=== PATIENT | female | born 1960 | race Caucasian/White ===

== ENCOUNTER → 2023-12-23 10:01 | Outpatient (CLI) | payer OTHER, SELFPAY | LOC: WC 10:21 | PROVIDERS: Referring Provider Registered Nurse; Visit Provider Surgery | DX: K94.19 Other complications of enterostomy (principal) | CPT/HCPCS: 99203; 99213 ==

== ENCOUNTER → 2023-12-30 11:39 | Outpatient (CLI) | payer OTHER, SELFPAY | LOC: WC 11:39 | PROVIDERS: Referring Provider Registered Nurse; Visit Provider Surgery | DX: K94.03 Colostomy malfunction (principal) | CPT/HCPCS: 99213 ==

== ENCOUNTER → 2024-01-06 10:12 | Outpatient (CLI) | payer OTHER, SELFPAY | LOC: WC 10:13 | PROVIDERS: Referring Provider Registered Nurse; Visit Provider Surgery | DX: Z43.3 Encounter for attention to colostomy (principal) | CPT/HCPCS: 99212 ==

== ENCOUNTER → 2024-01-27 10:31 | Outpatient (CLI) | payer OTHER, SELFPAY | PROVIDERS: Referring Provider Registered Nurse; Visit Provider Surgery | DX: Z43.2 Encounter for attention to ileostomy (principal) | CPT/HCPCS: 99212 ==

== ENCOUNTER 2024-10-21 16:02 | Inpatient (IN) | payer BC, SELFPAY ==
[2024-10-21] VITALS (21 sets, daily range): BP systolic 142–188; BP diastolic 76–110; PULSE 53–120; RESP 9–36; TEMP 36.2–37.2; O2SAT 90–100; BMI 17.6
--- NOTE | 2024-10-21 16:13 | EKG_ITS ---
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
--- NOTE | 2024-10-21 16:13 | DI.RAD.S_ITS ---
PROCEDURE: XR CHEST 1V INDICATIONS: altered mental status TECHNIQUE: One view of the chest was acquired. COMPARISON: None. FINDINGS: Surgical changes and devices: Cervical fixation rods. Lungs and pleura: Mild appearance of increased vascularity. Mediastinum: Mediastinal contours appear normal. Heart size is enlarged. Bones and chest wall: No suspicious bony lesions. Overlying soft tissues appear unremarkable. IMPRESSION: Mild increased vascularity suggestive of edema. Dictated by: Suzette Jordan M.D. on 10/21/2024 at 16:56 Approved by: Suzette Jordan M.D. on 10/21/2024 at 16:57
[2024-10-21 17:38] LABS: Hematocrit 27.7 % (36-46); Hemoglobin 9.5 g/dL (12.0-16.0); Mean Corpuscular HGB Conc 34.2 % (30-36); Mean Corpuscular Hemoglobin 30.3 PG (26-34); Mean Corpuscular Volume 88.5 fL (80-100); Platelet Count 123 X10^3/uL (150-400); Red Blood Cell Count 3.13 X10^6/uL (4.0-5.2); Red Cell Distribution Width 16.3 % (11.6-14.8); White Blood Cell Count 2.3 X10^3/uL (4.5-11.0)
[2024-10-21 17:42] LABS: Alanine Aminotransferase 38 IU/L (<35); Albumin 4.2 g/dL (3.5-5.0); Albumin Globulin Ratio 1.2 (1.0-2.8); Alkaline Phosphatase 107 U/L (38-126); Ammonia (NH3) < 9 umol/L (9-30); Aspartate Aminotransferase 62 IU/L (14-36); Bilirubin Total 0.3 mg/dL (0.2-1.3); Blood Urea Nitrogen 19 mg/dL (7-17); Calcium 10.1 mg/dL (8.4-10.2); Carbon Dioxide 23 mmol/L (22-32); Chloride 97 mmol/L (98-107); Estimated Glomerular Filt Rate > 60 mL/min (>60); Globulin 3.4 g/dL (1.7-4.1); Glucose 81 mg/dL (80-110); HEMOLYSIS < 15 (0-50); Potassium 4.5 mmol/L (3.4-5.1); Sodium 129 mmol/L (137-145); Total Protein 7.6 g/dL (6.3-8.2)
[2024-10-21 17:43] LABS: Add Manual Diff / Slide Review YES
[2024-10-21 17:53] LABS: Anisocytosis 1+; Neutrophils Absolute Manual 1909 /uL (3000-5900); Total Cells Counted 100
[2024-10-21 17:54] LABS: Microcytosis 1+
--- NOTE | 2024-10-21 19:18 | ED_ITS ---
HPI - Altered Mental Status General Chief Complaint: Altered Mental Status Stated Complaint: confusion, not feeling well Time Seen by Provider: 10/21/24 17:59 History of Present Illness HPI narrative: 63-year-old female with history of alcohol abuse (sober for 2 years), depression, HTN presents by private vehicle from home for intermittent confusion. History is obtained from at bedside, who was also who poor historian and states that he has short term memory loss. Patient's has been states that the patient has been intermittently ?delusional, off and on for the last year. He states that he has brought the patient twice to [facility], where her confusion was attributed to hyponatremia. Patient was given fluids and sodium was corrected and she was discharged home. states that he has been trying to feed the patient salt at home, but today she was confused again and so he brought her back in for evaluation. Related Data Home Medications Medication Instructions Recorded Confirmed amlodipine 5 mg tablet 5 mg PO DAILY 10/22/24 10/22/24 citalopram 10 mg tablet 10 mg PO DAILY 10/22/24 10/22/24 citalopram 10 mg tablet 20 mg PO DAILY 10/22/24 10/22/24 naproxen sodium 220 mg tablet 220 mg PO PRN PRN Pain (Scale 10/22/24 10/22/24 (Flanax (naproxen)) Score 1-3) sodium chloride 1,000 mg soluble 2,000 mg PO BID 10/22/24 10/22/24 tablet sodium zirconium cyclosilicate 10 10 g PO DAILY 10/22/24 10/22/24 gram oral powder packet (Lokelma) tramadol 50 mg tablet 50 mg PO PRN PRN Pain, Moderate 10/22/24 10/22/24 Allergies Allergy/AdvReac Type Severity Reaction Status Date / Time Penicillins Allergy Severe Anaphylaxis Verified 10/22/24 01:06 vancomycin Allergy Rash Verified 10/22/24 01:06 methocarbamol AdvReac Verified 10/22/24 01:06 Patient History Social History household members: spouse Exam Initial Vital Signs Initial Vital Signs: Vital Signs Temperature 98.9 F 10/21/24 16:08 Pulse Rate 57 L 10/21/24 16:08 Respiratory Rate 16 10/21/24 16:08 Blood Pressure 188/110 H 10/21/24 16:08 Pulse Oximetry 99 10/21/24 16:08 Oxygen Delivery Method Room Air 10/21/24 16:08 Const: Awake, alert, debilitated, frail, appears chronically unwell Cardiac: regular rate, regular rhythm RESP: unlabored, clear bilaterally, no wheezing GI: Soft, nontender, nondistended, no rebound, no guarding MSK: Atraumatic, full range of motion, pulses equal Skin: Warm, excoriations over hands and fingers bilaterally Neuro: AO x2, CN II-XII grossly intact, moves all extremities Course Orders Ordered: ED Orders 10/21/24 20:24 CT head/brain wo con Stat 10/21/24 20:25 Sodium Urine Random Stat Urine Drug Screen, Rapid Stat 10/21/24 20:26 US abdomen limited Stat 10/21/24 23:28 Consult to Occupational Therapy Evaluate & Treat Consult to Physical Therapy Evaluate & Treat 10/21/24 23:30 Complete Blood Count AUTO DIFF DAILY Comprehensive Metabolic Panel DAILY Acetaminophen (Acetaminophen 325 Mg Tablet) 650 mg PO Q6H PRN PRN Reason: Fever/Mild Pain (1-3) Lactated Ringer's (Lactated Ringers) 1,000 mls @ 75 mls/hr IV CONT PADMINI Last Admin: 10/22/24 01:22 Dose: 75 mls/hr Documented By: WB Naloxone HCl (Naloxone 0.4 Mg/Ml Vial) 0.2 mg IV Q2MIN PRN PRN Reason: Opiate Reversal Vital Signs Vital signs: Vital Signs - 8 hr 10/21/24 18:30 10/21/24 18:32 10/21/24 18:42 Temperature Pulse Rate 59 L 61 Respiratory Rate 11 L 11 L Blood Pressure 179/81 H Pulse Oximetry 10/21/24 18:42 10/21/24 19:00 10/21/24 19:00 Temperature Pulse Rate 58 L 56 L Respiratory Rate 9 L 9 L Blood Pressure 167/76 H Pulse Oximetry 99 97 10/21/24 19:30 10/21/24 19:31 10/21/24 19:31 Temperature Pulse Rate 66 64 Respiratory Rate Blood Pressure 174/81 H Pulse Oximetry 90 L 92 10/21/24 20:00 10/21/24 20:00 01/31/25 20:30 Temperature Pulse Rate 64 63 Respiratory Rate 36 H 23 Blood Pressure 182/90 H Pulse Oximetry 100 98 10/21/24 21:00 10/21/24 21:30 10/21/24 22:00 Temperature Pulse Rate 62 56 L 64 Respiratory Rate 19 29 H 19 Blood Pressure 180/91 H Pulse Oximetry 99 99 98 10/21/24 22:09 10/21/24 22:09 10/21/24 22:30 Temperature Pulse Rate 60 Respiratory Rate 16 Blood Pressure 167/90 H 183/100 H Pulse Oximetry 99 10/21/24 22:30 10/21/24 23:00 10/21/24 23:24 Temperature 97.2 F L Pulse Rate 63 82 61 Respiratory Rate 16 19 16 Blood Pressure 172/105 H Pulse Oximetry 100 99 100 MDM - Altered Mental Status Differential Diagnosis Differential diagnosis: Likely altered mental status, delirium and hypoglycemia Lab Data 10/21/24 17:15 10/21/24 17:15 Labs: Lab Results 10/21/24 10/21/24 Range/Units 17:15 20:25 WBC 2.3 L (4.5-11.0) X10^3/uL RBC 3.13 L (4.0-5.2) X10^6/uL Hgb 9.5 L (12.0-16.0) g/dL Hct 27.7 L (36-46) % MCV 88.5 (80-100) fL MCH 30.3 (26-34) PG MCHC 34.2 (30-36) % RDW 16.3 H (11.6-14.8) % Plt Count 123 L (150-400) X10^3/uL Neut % (Auto) Not Reportable Lymph % (Auto) Not Reportable [place] % (Auto) Not Reportable Eos % (Auto) Not Reportable Baso % (Auto) Not Reportable Lymph # (Auto) Not Reportable [place] # (Auto) Not Reportable Baso # (Auto) Not Reportable Total Counted 100 Seg Neutrophils % 83.0 H (38-70) % Lymphocytes % (Manual) 10.0 L (25-45) % Monocytes % (Manual) 6.0 (2-11) % Basophils % (Manual) 1.0 (0-1) % Neutrophils # (Manual) 1909 L (7719-4505) /uL RBC Morphology See below Anisocytosis 1+ H Microcytosis 1+ H PT 10.6 (9.4-12.5) SECONDS INR 0.9 (0.9-1.3) Sodium 129 L (137-145) mmol/L Potassium 4.5 (3.4-5.1) mmol/L Chloride 97 L (98-107) mmol/L Carbon Dioxide 23 (22-32) mmol/L BUN 19 H (7-17) mg/dL Creatinine 0.50 L (0.52-1.04) mg/dL Estimated GFR > 60 (>60) mL/min BUN/Creatinine Ratio 38.0 H (6-22) Glucose 81 (80-110) mg/dL Calcium 10.1 (8.4-10.2) mg/dL Total Bilirubin 0.3 (0.2-1.3) mg/dL AST 62 H (14-36) IU/L ALT 38 H (<35) IU/L Alkaline Phosphatase 107 (38-126) U/L Ammonia < 9 L (9-30) umol/L Total Protein 7.6 (6.3-8.2) g/dL Albumin 4.2 (3.5-5.0) g/dL Globulin 3.4 (1.7-4.1) g/dL Albumin/Globulin Ratio 1.2 (1.0-2.8) TSH 7.50 H (0.47-4.68) uIU/mL Ur Random Sodium 106 H (30-90) mmol/L U Opiates 300ng/mL cut Negative (Negative) Ur Oxycodone Screen Negative (Negative) Urine Methadone Screen Negative (Negative) Ur Barbiturates Screen Negative (Negative) U Tricyclic Antidepress Negative (Negative) Ur Phencyclidine Scrn Negative (Negative) Ur Amphetamines Screen Negative (Negative) U Methamphetamines Scrn Negative (Negative) Ur MDMA Scrn (Ecstasy) Negative (Negative) U Benzodiazepines Scrn Negative (Negative) Urine Cocaine Screen Negative (Negative) U Marijuana (THC) Screen Negative (Negative) Urine pH Normal (Normal) Urine Specific [place] Normal (Normal) Ur Creatinine Normal (Normal) Urine Dip Bedside Urine Glucose Negative Bedside Urine Bilirubin - Negative Bedside Urine Ketone - Negative Urine Specific [place] 1.01 Bedside Urine Occult Blood - Negative Bedside Urine pH 7 Bedside Urine Protein - Negative Bedside Urine Urobilinogen - Negative Bedside Urine Nitrite - Negative Bedside Urine Leukocytes - Negative Esterase Imaging Data CT scan - head: Radiologist's Impression: PROCEDURE: CT HEAD/BRAIN WO CON INDICATIONS: AMS TECHNIQUE: Noncontrast 4.5 mm thick angled axial sections acquired from the foramen magnum to the vertex, with coronal and sagittal reformats. For radiation dose reduction, the following was used: automated exposure control, adjustment of mA and/or kV according to patient size. COMPARISON: None. FINDINGS: Image quality: Diagnostic. CSF spaces: Basal cisterns are patent. No extra-axial fluid collections. Ventricles are normal in size and shape. Brain: No midline shift. No intracranial masses or hemorrhage. Barnes-white matter interface is normal. Skull and face: Calvarium and visualized facial bones are intact, without suspicious lesions. Sinuses: Visualized sinuses and mastoids are clear. IMPRESSION: No acute intracranial pathology. Approved by: Ivone Hendricks M.D.,Ph.D. on 10/21/2024 at 22:48 Chest x-ray: Radiologist's Impression: PROCEDURE: XR CHEST 1V INDICATIONS: altered mental status TECHNIQUE: One view of the chest was acquired. COMPARISON: None. FINDINGS: Surgical changes and devices: Cervical fixation rods. Lungs and pleura: Mild appearance of increased vascularity. Mediastinum: Mediastinal contours appear normal. Heart size is enlarged. Bones and chest wall: No suspicious bony lesions. Overlying soft tissues appear unremarkable. IMPRESSION: Mild increased vascularity suggestive of edema. Dictated by: Suzette Jordan M.D. on 10/21/2024 at 16:56 Approved by: Suzette Jordan M.D. on 10/21/2024 at 16:57 US - abdomen: Radiologist's Impression: PROCEDURE: US ABDOMEN LIMITED INDICATIONS: HX ALCOHOL ABUSE, LIVER EVAL TECHNIQUE: Real-time scanning was performed of the abdominal and retroperitoneal organs, with image documentation. COMPARISON: None. FINDINGS: Liver: Limited views of the liver. Liver is normal in size. There is increased hepatic echogenicity. Main portal vein is patent with normal hepatopetal flow. Gallbladder: No gallstones. No wall thickening. No pericholecystic edema. Negative sonographic Baez's sign. Biliary ducts: Intrahepatic bile ducts are non-dilated. Extrahepatic bile duct caliber measures 3 mm. Normal is 6-7 mm or less in diameter, or 10 mm or less post-cholecystectomy. Pancreas: Visualized portions of the pancreas are sonographically normal. Miscellaneous: No free abdominal fluid. IMPRESSION: Limited views of the liver. Increased hepatic echogenicity, which can be seen in the setting of hepatic steatosis. No cholelithiasis or sonographic evidence of acute cholecystitis. Note: Concordant preliminary findings given to ordering ED provider by data integration developer at time of imaging completion. Approved by: Ivone Hendricks M.D.,Ph.D. on 10/21/2024 at 22:09 ECG Data Interpretation: Normal sinus rhythm at 62 beats per minute. Normal ME. No ST T wave changes MDM Narrative Medical decision making narrative: Patient with chronic intermittent altered mental status. Has been attributed to low sodium in the past. Sodium here today 129, patient has varied between 127 and 130 based on records from [facility]. Patient was awake, alert, able to follow commands, however does intermittently say nonsensical statements and does appear to be confused. Case discussed with Nephrology Dr. Randall. She states that there does not appear to be an emergent need for transfer and nephrology consult. It is unlikely that this level sodium is causing the patient's symptoms. She recommends looking for other etiology of patient's altered mental status. She states that she is happy to consult as needed. Laboratory work reviewed, WBC count 2.3, previously 7.6. Hemoglobin 9.5, platelet count 123, sodium 129, potassium 4.5, creatinine 0.5. Previous sodium 128 on 10/19 at [facility]. Random sodium in urine 106. POC urine without sign of infection. CT brain negative for acute findings. Ultrasound shows signs of hepatic steatosis without obvious ascites or other evidence of failure. Mental status unchanged plan to admit patient for further treatment. Discharge Plan Departure Patient Disposition: Admitted As Inpatient Clinical Impression: Altered mental status, Hyponatremia Admit Date/Time: 10/21/24 23:28 Admit Provider: Angel Alexander
--- NOTE | 2024-10-21 20:24 | DI.CT.S_ITS ---
PROCEDURE: CT HEAD/BRAIN WO CON INDICATIONS: AMS TECHNIQUE: Noncontrast 4.5 mm thick angled axial sections acquired from the foramen magnum to the vertex, with coronal and sagittal reformats. For radiation dose reduction, the following was used: automated exposure control, adjustment of mA and/or kV according to patient size. COMPARISON: None. FINDINGS: Image quality: Diagnostic. CSF spaces: Basal cisterns are patent. No extra-axial fluid collections. Ventricles are normal in size and shape. Brain: No midline shift. No intracranial masses or hemorrhage. Barnes-white matter interface is normal. Skull and face: Calvarium and visualized facial bones are intact, without suspicious lesions. Sinuses: Visualized sinuses and mastoids are clear. IMPRESSION: No acute intracranial pathology. Approved by: Ivone Hendricks M.D.,Ph.D. on 10/21/2024 at 22:48
--- NOTE | 2024-10-21 20:26 | DI.US.S_ITS ---
PROCEDURE: US ABDOMEN LIMITED INDICATIONS: HX ALCOHOL ABUSE, LIVER EVAL TECHNIQUE: Real-time scanning was performed of the abdominal and retroperitoneal organs, with image documentation. COMPARISON: None. FINDINGS: Liver: Limited views of the liver. Liver is normal in size. There is increased hepatic echogenicity. Main portal vein is patent with normal hepatopetal flow. Gallbladder: No gallstones. No wall thickening. No pericholecystic edema. Negative sonographic Baez's sign. Biliary ducts: Intrahepatic bile ducts are non-dilated. Extrahepatic bile duct caliber measures 3 mm. Normal is 6-7 mm or less in diameter, or 10 mm or less post-cholecystectomy. Pancreas: Visualized portions of the pancreas are sonographically normal. Miscellaneous: No free abdominal fluid. IMPRESSION: Limited views of the liver. Increased hepatic echogenicity, which can be seen in the setting of hepatic steatosis. No cholelithiasis or sonographic evidence of acute cholecystitis. Note: Concordant preliminary findings given to ordering ED provider by liner roll changer at time of imaging completion. Approved by: Ivone Hendricks M.D.,Ph.D. on 10/21/2024 at 22:09
[2024-10-21 20:32] LABS: INR 0.9 (0.9-1.3); Prothrombin Time 10.6 SECONDS (9.4-12.5)
[2024-10-21 23:39] LABS: Ur Creatinine Normal (Normal); Ur Specific Gravity Normal (Normal); Urine pH Normal (Normal)
[2024-10-21 23:40] LABS: UR Morphine/Opiate cutoff 300 Negative (Negative); Urine Amphetamines Negative (Negative); Urine Barbiturates Negative (Negative); Urine Benzodiazepines Negative (Negative); Urine Cocaine Negative (Negative); Urine MDMA Negative (Negative); Urine Methadone Negative (Negative); Urine Methamphetamines Negative (Negative); Urine Oxycodone Negative (Negative); Urine Phencyclidine Negative (Negative); Urine Tetrahydrocannabinol Negative (Negative); Urine Tricyclic Antidepressant Negative (Negative)
[2024-10-21 23:50] LABS: Sodium Urine Random 106 mmol/L (30-90)
[2024-10-22] VITALS (65 sets, daily range): BP systolic 41–177; BP diastolic 23–113; PULSE 58–73; RESP 12–26; TEMP 36–36.4; O2SAT 91–100
[2024-10-22] MEDS: LACTATED RINGERS 1,000 ML 75 ML IV (01:22)
[2024-10-22 01:23] LABS: Ethanol (ETOH) < 10 mg/dL
[2024-10-22 01:48] LABS: MRSA (Nasal) PCR NOT DETECTED (Not Detect)
[2024-10-22] MEDS: LORazepam 2 MG/ML INJ IV ×3 (03:31→13:09)
--- NOTE | 2024-10-22 03:47 | PM.HP.1 ---
History of Present Illness History of Present Illness Chief complaint: confusion, not feeling well Narrative: 63 year old female with past medical history of alcohol abuse (last drink 2 years ago), HTN, depression and HTN presents with confusion. Per the patient's report, the patient has been having intermittent confusion and delusion for the past year. Previously, the patient was diagnosed with hyponatremia while she was confused. However, the patient was confused again over the last few days despite the patient's giving her more salt intake. The history is also limited as the patient's himself states that he he has short term memory loss. Otherwise, there is no report of any fever, chills, nausea, vomiting, coughing, shortness of breath or chest pain. In our ER, the patient's sodium was 129, WBC 2.3, HB 9.5, BUN 19, Cr 0.5. Ammonia level normal. CT head was negative. TSH 7.5 (ordered later), and no sign of infection though no UA was obtained. CXR ? for mild pulmonary edema though patient saturating was well on room air. IVF with NS given. [facility] Social History household members: spouse Meds Home Medications and Allergies Home Medications Medication Instructions Recorded Confirmed Type amlodipine 5 mg tablet 5 mg PO DAILY 10/22/24 10/22/24 History citalopram 10 mg tablet 10 mg PO DAILY 10/22/24 10/22/24 History citalopram 10 mg tablet 20 mg PO DAILY 10/22/24 10/22/24 History naproxen sodium 220 mg tablet 220 mg PO PRN PRN Pain (Scale 10/22/24 10/22/24 History (Flanax (naproxen)) Score 1-3) sodium chloride 1,000 mg soluble 2,000 mg PO BID 10/22/24 10/22/24 History tablet sodium zirconium cyclosilicate 10 10 g PO DAILY 10/22/24 10/22/24 History gram oral powder packet (Lokelma) tramadol 50 mg tablet 50 mg PO PRN PRN Pain, Moderate 10/22/24 10/22/24 History Allergies Allergy/AdvReac Type Severity Reaction Status Date / Time Penicillins Allergy Severe Anaphylaxis Verified 10/22/24 01:06 vancomycin Allergy Rash Verified 10/22/24 01:06 methocarbamol AdvReac Verified 10/22/24 01:06 Review of Systems Review of Systems Narrative: Limited as patient is confused Exam Vital Signs (past 8 hours): - 10/21/24 20:00 10/21/24 20:00 10/21/24 20:30 Temperature Pulse Rate 64 63 Respiratory Rate 36 H 23 Blood Pressure 182/90 H Pulse Oximetry 100 98 10/21/24 21:00 10/21/24 21:30 10/21/24 22:00 Temperature Pulse Rate 62 56 L 64 Respiratory Rate 19 29 H 19 Blood Pressure 180/91 H Pulse Oximetry 99 99 98 10/21/24 22:09 10/21/24 22:09 10/21/24 22:30 Temperature Pulse Rate 60 Respiratory Rate 16 Blood Pressure 167/90 H 183/100 H Pulse Oximetry 99 10/21/24 22:30 10/21/24 23:00 10/21/24 23:24 Temperature 97.2 F L Pulse Rate 63 82 61 Respiratory Rate 16 19 16 Blood Pressure 172/105 H Pulse Oximetry 100 99 100 10/21/24 23:30 10/22/24 00:00 10/22/24 00:03 Temperature Pulse Rate 120 H 68 Respiratory Rate 23 25 H Blood Pressure 177/113 H Pulse Oximetry 99 99 10/22/24 00:03 10/22/24 00:04 10/22/24 00:05 Temperature Pulse Rate 67 66 67 Respiratory Rate 17 18 20 Blood Pressure Pulse Oximetry 100 99 99 10/22/24 00:05 Temperature Pulse Rate Respiratory Rate Blood Pressure 172/108 H Pulse Oximetry Oxygen Delivery Method Room Air Narrative Exam Narrative: Physical Exam: GENERAL: The patient is not in any acute distressed. Awake but confused HEENT: Nonicteric sclerae, PERRLA, EOMI. Oropharynx clear. Moist mucous membranes. Conjunctivae appear well perfused. HEART: Regular rate and rhythm without murmurs. No lower extremities edema. LUNGS: Clear to auscultation bilaterally. No wheezing, crackles or rhonchi ABDOMEN: Soft, positive bowel sounds, nontender. SKIN: No rash, no excessive bruising, petechiae, or purpura. NEUROLOGIC: AxO x 1 to self only. Cranial nerves II-XII intact without motor/sensory deficit. Objective Labs 10/21/24 17:15 10/21/24 17:15 Labs: Laboratory Results - last 24 hr 10/21/24 10/21/24 10/22/24 17:15 20:25 00:33 WBC 2.3 L RBC 3.13 L Hgb 9.5 L Hct 27.7 L MCV 88.5 MCH 30.3 MCHC 34.2 RDW 16.3 H Plt Count 123 L Neut % (Auto) Not Reportable Lymph % (Auto) Not Reportable [place] % (Auto) Not Reportable Eos % (Auto) Not Reportable Baso % (Auto) Not Reportable Lymph # (Auto) Not Reportable [place] # (Auto) Not Reportable Baso # (Auto) Not Reportable Total Counted 100 Seg Neutrophils % 83.0 H Lymphocytes % (Manual) 10.0 L Monocytes % (Manual) 6.0 Basophils % (Manual) 1.0 Neutrophils # (Manual) 1909 L RBC Morphology See below Anisocytosis 1+ H Microcytosis 1+ H PT 10.6 INR 0.9 Sodium 129 L Potassium 4.5 Chloride 97 L Carbon Dioxide 23 BUN 19 H Creatinine 0.50 L Estimated GFR > 60 BUN/Creatinine Ratio 38.0 H Glucose 81 Calcium 10.1 Total Bilirubin 0.3 AST 62 H ALT 38 H Alkaline Phosphatase 107 Ammonia < 9 L Total Protein 7.6 Albumin 4.2 Globulin 3.4 Albumin/Globulin Ratio 1.2 TSH 7.50 H Ur Random Sodium 106 H Nasal Screen MRSA (PCR) Not detected U Opiates 300ng/mL cut Negative Ur Oxycodone Screen Negative Urine Methadone Screen Negative Ur Barbiturates Screen Negative U Tricyclic Antidepress Negative Ur Phencyclidine Scrn Negative Ur Amphetamines Screen Negative U Methamphetamines Scrn Negative Ur MDMA Scrn (Ecstasy) Negative U Benzodiazepines Scrn Negative Urine Cocaine Screen Negative U Marijuana (THC) Screen Negative Urine pH Normal Urine Specific [place] Normal Ethyl Alcohol Ur Creatinine Normal 10/22/24 01:00 WBC RBC Hgb Hct MCV MCH MCHC RDW Plt Count Neut % (Auto) Lymph % (Auto) [place] % (Auto) Eos % (Auto) Baso % (Auto) Lymph # (Auto) [place] # (Auto) Baso # (Auto) Total Counted Seg Neutrophils % Lymphocytes % (Manual) Monocytes % (Manual) Basophils % (Manual) Neutrophils # (Manual) RBC Morphology Anisocytosis Microcytosis PT INR Sodium Potassium Chloride Carbon Dioxide BUN Creatinine Estimated GFR BUN/Creatinine Ratio Glucose Calcium Total Bilirubin AST ALT Alkaline Phosphatase Ammonia Total Protein Albumin Globulin Albumin/Globulin Ratio TSH Ur Random Sodium Nasal Screen MRSA (PCR) U Opiates 300ng/mL cut Ur Oxycodone Screen Urine Methadone Screen Ur Barbiturates Screen U Tricyclic Antidepress Ur Phencyclidine Scrn Ur Amphetamines Screen U Methamphetamines Scrn Ur MDMA Scrn (Ecstasy) U Benzodiazepines Scrn Urine Cocaine Screen U Marijuana (THC) Screen Urine pH Urine Specific [place] Ethyl Alcohol < 10 Ur Creatinine Assessment & Plan Assessment & Plan narrative: Acute encephalopathy. Admit the patient to medical observation with telemetry. ?from hypoantremia/dehydration and possible UTI (pending UA collection). Will give NS and monitor for now. CT head negative. AMmonia normal. TSH elevated so will get T4. Monitor mentation closely. ? post-ictal seizure. Will also add on CK level and monitor for seizure. Hyponatemia. Likely from dehydration. elevated BUN. Sodium 129. NS and monitor sodium closely. Dehydration. IVF. Leukopenic. No clear sign of infection though UA still pending. Monitor for now and will treat infection if one is found. CXR negative for pneumonia. HTN. Monitor BP and resume home medications accordingly. DVT PPx hep SQ Code status full code Disposition home in 2 days. Time-Based Coding :: [TOTAL MINUTES] spent with patient and on the chart (including review of chart, obtaining history, exam, reviewing outside data, placing orders, documenting exam and treatment plan, and counseling patient) on [DATE].
--- NOTE | 2024-10-22 04:21 | DI.RAD.S_ITS ---
PROCEDURE: XR CHEST 1V INDICATIONS: Confirm ET tube placement TECHNIQUE: One view of the chest was acquired. COMPARISON: [facility], CR, XR CHEST 1V, 10/21/2024, 16:16. FINDINGS: Surgical changes and devices: Endotracheal tube 1.2 cm above the hai. Nasogastric tube in the stomach. Overlying leads and wires. Right IJ central venous line tip at the cavoatrial junction. Instrumented cervical spine decompression Lungs and pleura: Patchy right-sided vague pulmonary infiltrates Mediastinum: Mediastinal contours appear normal. Heart size is normal. Bones and chest wall: No suspicious bony lesions. Overlying soft tissues appear unremarkable. IMPRESSION: Patchy right-sided vague pulmonary infiltrates. Endotracheal tube tip 1.2 cm above the hai. Consider repositioning Note: This final report is concordant with the preliminary after-hours interpretation provided by [facility] Approved by: Elvis Torres M.D. on 10/22/2024 at 8:08
[2024-10-22] MEDS: ETOMIDATE 2 MG/ML 10 ML VIAL 20 MG IV (04:23)
[2024-10-22] MEDS: EPINEPHRINE IV (04:48)
[2024-10-22] MEDS: SODIUM BICARB 8.4% SYRINGE 50 MEQ IV (04:48)
[2024-10-22] MEDS: [UNRECOGNIZED DRUG - OTHER] IV (04:48)
--- NOTE | 2024-10-22 05:24 | EKG_ITS ---
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
[2024-10-22 05:32] LABS: Hematocrit 24.8 % (36-46); Hemoglobin 8.5 g/dL (12.0-16.0); Mean Corpuscular HGB Conc 34.3 % (30-36); Mean Corpuscular Hemoglobin 30.4 PG (26-34); Mean Corpuscular Volume 88.4 fL (80-100); Platelet Count 121 X10^3/uL (150-400); White Blood Cell Count 5.3 X10^3/uL (4.5-11.0)
[2024-10-22 05:35] LABS: Ethanol (ETOH) < 10 mg/dL
[2024-10-22 05:36] LABS: Alanine Aminotransferase 66 IU/L (<35); Albumin 3.4 g/dL (3.5-5.0); Albumin Globulin Ratio 1.2 (1.0-2.8); Alkaline Phosphatase 87 U/L (38-126); Aspartate Aminotransferase 106 IU/L (14-36); BUN Creatinine Ratio 32.1 (6-22); Bilirubin Total 0.3 mg/dL (0.2-1.3); Blood Urea Nitrogen 17 mg/dL (7-17); Calcium 9.2 mg/dL (8.4-10.2); Carbon Dioxide 26 mmol/L (22-32); Chloride 94 mmol/L (98-107); Estimated Glomerular Filt Rate > 60 mL/min (>60); Globulin 2.8 g/dL (1.7-4.1); Glucose 249 mg/dL (80-110); HEMOLYSIS 41 (0-50); Potassium 2.9 mmol/L (3.4-5.1); Sodium 131 mmol/L (137-145); Total Protein 6.2 g/dL (6.3-8.2)
--- NOTE | 2024-10-22 05:39 | ED_ITS ---
ED Provider Consult/Code Note General Reason for Admission: confusion, not feeling well Events leading to Consult/Code: I was called to the ICU to evaluate the patient. Patient was witnessed to have 2 episodes of tonic-clonic seizure activity with postictal state afterwards. After the 2nd seizure I was called to evaluate the patient for possible intubation. On arrival the patient was unresponsive, sonorous respirations. Suction showed trace secretions in the airway. On 15 L OxyMask patient was saturating 90-95%. Patient had blown IV access. Due to patient's inability to protect airway decision made to prioritize securing airway over central IV access. Nursing was able to obtain ultrasound-guided peripheral access in the right bicep. Patient was intubated with etomidate and rocuronium using a MAC 3 GlideScope blade. Patient had a difficult airway with very anterior cords. Shortly after intubation patient we were unable to obtain blood pressure readings. 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 No peripheral pulses were palpated and We quickly realized that the patient was in PA arrest and CPR was initiated. The peripheral IV access in the right biceps was lost and an IO had to be established in the right humerus. Attempted crash central line attempt in the right femoral region but this was unsuccessful. Hematoma was present postprocedure and a compression bandage applied. Patient was taken off of the ventilator and bagged. After approximately 10 minutes of CPR, 1 epinephrine, 1 bicarb the patient had return of spontaneous circulation. A right IJ was placed. IV fluids running, Levophed initiated. The inpatient team was contacted and updated on the events. Tele ICU to be consulted by hospitalist team. Of note, Respiratory therapy unable to be present during code -the respiratory therapist was in the middle of resuscitative efforts in the Center. Ventilator setting management by myself. Cardiac Rhythm: sinus bradycardia Respiratory ET Tube Size: 7.5 Tube Secured Depth (cm): 21 Tube Secured Location: teeth Tube Placement Confirmation: Visualized tube passing through cords, Equal breath sounds bilaterally, No breath sounds over epigastrium, Confirmation by capnometry and Chest Xray Lines Placed Central Line Lumen Inserted: triple Ultrasound Used for Placement: Yes Care Provided Description of care provided: Please see above note. Additional 65 minutes of critical care time provided. Outcome Outcome: Patient with spontaneous pulses present. In critical condition. Remains in ICU
[2024-10-22 05:49] LABS: Add Manual Diff / Slide Review YES
[2024-10-22 05:52] LABS: T4 Total Thyroxine 6.44 ug/dL (5.5-11.0)
[2024-10-22 05:57] LABS: Base Excess ABG -0.4 mmol/L (-2-3); HCO3 ABG 23 mmol/L (23-27); Oxygen Saturation ABG 100 % (95-100); PCO2 ABG 31.6 mmHg (35-45); PO2 ABG 377 mmHg (80-100); TCO2 ABG 22 mmol/L (23-27); pH ABG 7.47 (7.35-7.45)
--- NOTE | 2024-10-22 05:58 | PC.NURSE ---
At 0325 patient was noted to have yelped in her room. This nurse as well as other ICU nurse immediately responded to room noting patient having tonic clonic seizure with right gaze deviation. Immediately messaged and called hospitalist Dr. Alexander who did not immediately answer but called back just a few moments later. In the mean time another nurse went to get ativan as requested by this nurse. 2mg IM ativan given as IV access had been lost (MD had been updated prior with plans for PICC later today). Airway support was given with 10L oxymask and BVM as needed. Bloody secretions suctioned from mouth. Was maintaining airway but shortly thereafter patient had another tonic clonic seizure and was then given another 2mg IM ativan. Seizure subsided shortly after and patient remained in a post ictal state but began having further issues maintaining airway. ED was alerted for need for central line and likely intubation. After speaking with ED doctor it was decided that we should intubate patient to protect airway. 20 of etomidate and 50 of Pedro were given through an ultrasound guided IV that quickly infiltrated shortly thereafter. During intubation it was noted that we were unable to get a blood pressure. Pulses were checked and patient was noted to be in PEA. CPR was immediately started. D/t no IV access an IO was placed in the right humerus to give ALS medications. 1 amp of bicarb and 1 amp of epi were given with ROSC achieved after roughly 15 min. Once ROSC was achieved a TL IJ was placed to given medications/fluids. Patient was started on norepi gtt d/t low BP. Bolus of LR given at direction of ED MD. Shirlye and OG placed as protocol with large amount of urine released from bladder as well as large amount of brown liquid from stomach. IO removed by this nurse. Attempted to call Stalin with number in chart but only and answering machine answered, no message left to preserve HIPPA as this nurse is unsure if that answering machine belonged to or not d/t generic outgoing message. Also attempted to call mother listed in chart but phone number is not in service.
[2024-10-22] MEDS: ROCURONIUM 50 MG/5 ML INJ IV (06:20)
[2024-10-22] MEDS: NOREPINEPHRINE BITARTRATE/D5W 4 MG/250 ML PLAST..BAG 137.778 MG IV ×2 (06:21→06:53)
[2024-10-22] MEDS: propofoL 1,000 MG/100 ML VIAL 1.225 MG IV (06:21)
[2024-10-22 06:25] LABS: Neutrophils Absolute Manual 4505 /uL (3000-5900); Nucleated Red Blood Cells 1 #/Diff; Total Cells Counted 100
[2024-10-22 06:26] LABS: Anisocytosis 1+; Microcytosis 1+
[2024-10-22 06:44] LABS: Appearance Urine UA CLEAR; Bilirubin Urine UA NEGATIVE (NEGATIVE); Glucose Urine UA NEGATIVE (Negative); Ketones Urine UA NEGATIVE (NEGATIVE); Leukocyte Esterase Urine UA NEGATIVE (NEGATIVE); Nitrite Urine UA NEGATIVE (Negative); Occult Blood Urine UA NEGATIVE (Negative); Protein Urine UA 1+ (Negative); Urobilinogen Urine UA 0.2 E.U./dL (0.2)
[2024-10-22 06:45] LABS: Color Urine UA Straw
[2024-10-22 06:54] LABS: Bacteria Urine Occasional (0-1); RBC Urine 1-5/HPF (0-5/HPF); Urine Volume 10mL (spun); WBC Urine 0-1/HPF (0-5/HPF)
[2024-10-22 06:55] LABS: Culture Indicated Urine Cult Not Indicated; Hyaline Casts Urine None Seen; Squamous Epithelial Cell Urine 0-1 /HPF (0-5/HPF)
--- NOTE | 2024-10-22 07:27 | EKG_ITS ---
[place] [id number] [place] [address] Test Date: 2024-10-22 Pat Name: Becky Diaz Department: [facility] Room: 227 Gender: Female Epidemiology Intern: LORENZO : 1960 Requested By: Order Number: [id number] Reading MD: Ezio Stinson Measurements Intervals [place] Rate: 69 P: 69 AK: 164 QRS: 18 QRSD: 90 T: 221 QT: 484 QTc: 518 Interpretive Statements Normal sinus rhythm Minimal voltage criteria for LVH, may be normal variant ( David product ) T wave abnormality, consider inferior ischemia T wave abnormality, consider anterolateral ischemia Prolonged QT Electronically Signed On 10-26-2024 23:42:45 PST by Ezio Stinson
[2024-10-22 07:30] LABS: Blood Gas Collection Site Right Radial
[2024-10-22 07:31] LABS: Allen Test for ABG Passed? Yes, Passed
[2024-10-22] MEDS: POTASSIUM CHLORIDE IN WATER 10 MEQ/100 ML PIGGYBACK 100 MEQ IV ×6 (07:36→13:16)
[2024-10-22 08:24] LABS: Magnesium 1.1 mg/dL (1.6-2.3)
[2024-10-22 08:39] LABS: Troponin I 0.385 ng/mL (0.01-0.034)
--- NOTE | 2024-10-22 08:56 | DI.CT.S_ITS ---
PROCEDURE: CT HEAD/BRAIN WO CON INDICATIONS: neurological changes TECHNIQUE: Noncontrast 4.5 mm thick angled axial sections acquired from the foramen magnum to the vertex, with coronal and sagittal reformats. For radiation dose reduction, the following was used: automated exposure control, adjustment of mA and/or kV according to patient size. COMPARISON: [facility], CT, CT HEAD/BRAIN WO CON, 10/21/2024, 20:57. FINDINGS: CSF spaces: Basal cisterns are patent. No extra-axial fluid collections. Ventricles are normal in size and shape. Brain: No midline shift. No intracranial masses or hemorrhage. Barnes-white matter interface is normal. Skull and face: Calvarium and visualized facial bones are intact, without suspicious lesions. Sinuses: Visualized sinuses and mastoids are clear. IMPRESSION: No acute intracranial pathology. Approved by: Elvis Torres M.D. on 10/22/2024 at 8:45
[2024-10-22] MEDS: NOREPINEPHRINE BITARTRATE/D5W 4 MG/250 ML PLAST..BAG 122.469 MG IV ×2 (09:13→11:05)
--- NOTE | 2024-10-22 09:29 | DI.ECHO.S_ITS ---
[facility] +---------+ Hospital : : [address] : : [place] : : [address] : : Phone: [phone] Echocardiogram Report + + :Name: KAEL SAAB Study Date: 10/22/2024 Height: 60 in : :[facility] ReadingLocation: Weight: 90 lb : : Gender: Female BSA: 1.3 m2 : :: 1960 Age: 63 yrs BP: 111/62 mmHg: :Reason For Study: [place] : :Ordering Physician: JOSEFA, : :KEYLA Performed By: Omar Mariano : :Referring: KEYLA RIVERO : + + Interpretation Summary Technically difficult study as the patient on ventilator. 1) Mildly increased left ventricular thickness (concentric) with normal size, normal wall motion and normal systolic function (EF 60-65%). 2) Normal right ventricular size and function. 3) No significant valvular abnormalities. 4) There is a trivial pericardial effusion noted. 5) No prior Echo available for comparison. Procedure: A two-dimensional transthoracic echocardiogram with color flow and Doppler was performed. The study quality was technically adequate. There is no prior echocardiogram noted for this patient. The patient was in normal sinus rhythm during the exam. Left Ventricle: The left ventricle is normal in size. There is mild concentric left ventricular hypertrophy. The ejection fraction is estimated to be 60-65%. Left ventricular systolic function appears normal without focal wall motion abnormalities. Right Ventricle: The right ventricle is normal in size and function. Atria: The left atrium grossly appears normal in size. Right atrial size is normal. There is no Doppler evidence for an interatrial shunt. Mitral Valve: The mitral valve leaflets appear normal. There is no evidence of stenosis, fluttering, or prolapse. There is no mitral regurgitation noted. Aortic Valve: The aortic valve opens well. No aortic regurgitation is present. Tricuspid Valve: The tricuspid valve leaflets are thin and pliable. There is trace tricuspid regurgitation. Pulmonic Valve: The pulmonic valve leaflets are thin and pliable; valve motion is normal. There is no pulmonic valvular regurgitation. Great Vessels: The aortic root is normal size. The dimensions of the ascending aorta are normal. The pulmonary artery is normal size. IVC normal size, no valsalva d/t pt on vent. Pericardium/ Pleura There is a trivial pericardial effusion noted. There is no pleural effusion. MMode/2D Measurements & Calculations LVIDd: 3.2 cm LVOT diam: 1.7 cm LVIDs: 1.9 cm Ao root diam: 3.0 cm FS: 39.1 % asc Aorta Diam: 2.9 cm EPSS: 0.25 cm IVSd: 1.1 cm LVPWd: 1.1 cm LV taylor. diameter/BSA (cm/m^2): 2.4 LV sys. diameter/BSA (cm/m^2): 1.5 RA long axis: 2.9 cm RVD1 (basal): 2.8 cm RA area: 6.5 cm2 RVD2 (mid): 2.2 cm RA vol: 12.6 ml TAPSE: 1.6 cm RA : 9.5 ml/m2 IVC diam: 1.7 cm Doppler Measurements & Calculations Ao V2 max: 142.3 cm/sec LVOT Max Heath: 92.5 cm/sec Ao V2 mean: 92.9 cm/sec LV V1 max P.4 mmHg Ao max P.1 mmHg LV V1 VTI: 19.9 cm Ao mean P.9 mmHg ARTURO(I,D): 1.8 cm2 Ao V2 VTI: 25.1 cm ARTURO(V,D): 1.5 cm2 sev ratio: 0.79 ARTURO indexed to BSA (cm^2/m^2): 1.3 MV E max heath: 47.1 cm/sec TR max heath: 237.0 cm/sec MV A max heath: 50.7 cm/sec TR max P.5 mmHg MV E/A: 0.93 PA V2 max: 93.1 cm/sec Med Peak E' Heath: 4.0 cm/sec PA V2 mean: 61.8 cm/sec E/E' med: 11.9 PA mean P.8 mmHg Lat Peak E' Heath: 5.9 cm/sec PA pr(Accel): 29.3 mmHg E/E' lat: 7.9 E/e' average: 9.9 MV dec time: 0.21 sec SV(LVOT): 44.9 ml Reading Physician:12:57 PM
--- NOTE | 2024-10-22 09:33 | EKG_ITS ---
[address] [address] Test Date: 2024-10-22 Pat Name: Becky Diaz Department: Room: 227 Gender: Female Cake Former: BREANNA : 1960 Requested By: Order Number: [id number] Reading MD: Ezio Stinson Measurements Intervals [place] Rate: 75 P: 62 HI: 148 QRS: 26 QRSD: 86 T: 196 QT: 458 QTc: 511 Interpretive Statements Normal sinus rhythm T wave abnormality, consider inferior ischemia T wave abnormality, consider anterolateral ischemia Prolonged QT Electronically Signed On 10-26-2024 23:42:48 PST by Ezio Stinson
[2024-10-22] MEDS: MAGNESIUM SULFATE 4 GM/100 ML PIGGYBACK IV (09:51)
[2024-10-22 10:38] LABS: Troponin I 0.564 ng/mL (0.01-0.034)
--- NOTE | 2024-10-22 10:50 | CM.DANOTE ---
B DCP Assessment note pt is a 63yo F admitted to the ICU with AMS. pt was intubated after seizing twice after being admitted to the floor. PCP Robert Eric and self pay [employer] HELPER reviewed EMR. Pt lives indep with spouse in [place]. Pt was seen at the [facility] ED twice recently for hyponatremia and was dc'd home from there. Pt was confused and so spouse brought her to ED. pt needed to be intubated early this morning. Per provider in morning rounds, attempting to transfer to higher level of care. acceptance pending. P: transfer to higher level of care in progress. CM team will continue to follow as needed RHETT Hi Discharge Planning/Care Management CM Discharge Assessment Start: 10/22/24 10:49 Freq: Status: Active Protocol: Document 10/22/24 10:49 SL (Rec: 10/22/24 10:50 SL [id number]) Discharge Planning Assessment Assigned Wound Care Rn RHETT Patrick DPOA/Assigned Designee Name Stalin, spouse Contact Information [phone] Advance Directives? No History Provided By Patient,Family Member Prior Living Arrangements House Household Members spouse Independent with ADL's Yes Is patient alert and oriented? No: intubated at this time Discharge Plan Transfer to Higher Level of Care Whiteboard Updated in Patient Room with No name and ext. # of Wound Care Rn Review Status In Process Please Provide Date Initial DC 10/22/24 Assessment Was Performed Next Review Type Continued Stay Review
--- NOTE | 2024-10-22 10:51 | EKG_ITS ---
[facility] [address] [place] [address] Test Date: 2024-10-22 Pat Name: Becky Diaz Department: [facility] Room: 227 Gender: Female Data Report Analyst: LORENZO : 1960 Requested By: Order Number: [id number] Reading MD: Ezio Stinson Measurements Intervals [place] Rate: 72 P: 37 KS: 148 QRS: 5 QRSD: 90 T: 192 QT: 454 QTc: 497 Interpretive Statements Normal sinus rhythm Minimal voltage criteria for LVH, may be normal variant ( David product ) Marked T wave abnormality, consider anterolateral ischemia Prolonged QT Electronically Signed On 10-26-2024 23:42:51 PST by Ezio Stinson
[2024-10-22] MEDS: CHLORHEXIDINE GLUCONATE 15 ML CUP PO (11:06)
--- NOTE | 2024-10-22 12:15 | PT-IP ANOTE ---
PT eval order received and EMR reviewed. pt was intubated last night. checked with nurse and confirmed that pt is still intubated and may need to be transferred to another hospital. will d/c PT eval order. pt not medically stable for PT at this time.
[2024-10-22 12:38] LABS: Creatine Kinase 274 U/L (30-135)
[2024-10-22 13:09] LABS: Troponin I 0.786 ng/mL (0.01-0.034)
[2024-10-22] MEDS: NOREPINEPHRINE 8 MG in SODIUM CHLORIDE 0.9% 250 ML 7.899 MG IV (13:18)
[2024-10-22] MEDS: SODIUM CHLORIDE 0.9% 500 ML 1000 ML IV (13:21)
--- NOTE | 2024-10-22 14:13 | PC.NURSE ---
Addendum entered by Lori Hale R.N. 10/22/24 18:22: 1715 Al belongings went with patient, with transport team. Pt being transported with restraints in place for protection of ETT/lines during transport. No further pt contact at this time Original Note: Dayshift note; Pt was intubated at 0345 this morning, Vent settings FiO2 30% TV 390 (then reduced by RT) 370, RR (initially 20) 15 PEEP 5, Propofol and Norepi infusing as ordered, (see emar) sedation titrated to a RASS of -2 or light sedation. It was noted at this time (by this nurse) that pt was having repetitive twitching movements, Dr Zhou at bedside, CT head ordered, pt taken by this nurse, RT and Candida RN to CT without difficulty. Dr Zhou gave verbal orders to titrate propofol to off so that we could assess pt full neuro status, during this time troponin levels were reported at 0.385, reported to Dr Zhou and charge nurse Viridiana, stat EKG ordered and performed. Continued to titrate propofol down, replaced K+ and Mag as ordered, new troponin results 0.[address] Zhou and Viridiana, stat EKG ordered and done. ECHO ordered and completed. Administered bolus of 500L NS per Dr Zhou. [facility] contacted for transfer, propofol turned off, pt continues with twitching movements, does not open eyes but moves extremities, unable to follow commands, movements do not appear purposeful. Stalin at bedside, updated on pt status and efforts for transfer, agrees with transfer. During changing of Norepi, pt BP dropped to 60/28 with MAP of 39, increase the norepi (see emar), called Dr Zhou to bedisde. With increase of norepi pt BP improved to 105/[address] Haley Lewis [facility] by ground transport, bed status pending notification Bed available at [facility], [facility] ETA 1630. Turkish/Neuro room 203, will call report, pt stable at this time.
--- NOTE | 2024-10-22 14:45 | PM.DS.IH.1 ---
History of Present Illness History of Present Illness Date Patient Seen: 10/22/24 Time Patient Seen: 07:10 Date of Onset of Symptoms: 10/21/24 Chief complaint: confusion, not feeling well Narrative: 63 year old female with past medical history of alcohol abuse (last drink 2 years ago), HTN, depression and HTN presents with confusion. Per the patient's report, the patient has been having intermittent confusion and delusion for the past year. Previously, the patient was diagnosed with hyponatremia while she was confused. However, the patient was confused again over the last few days despite the patient's giving her more salt intake. The history is also limited as the patient's himself states that he he has short term memory loss. Otherwise, there is no report of any fever, chills, nausea, vomiting, coughing, shortness of breath or chest pain. In our ER, the patient's sodium was 129, WBC 2.3, HB 9.5, BUN 19, Cr 0.5. Ammonia level normal. CT head was negative. TSH 7.5 (ordered later), and no sign of infection though no UA was obtained. CXR ? for mild pulmonary edema though patient saturating was well on room air. IVF with NS given. ADDENDUMA few hours after being on the medical floor, the patient was noted to have tonic clonic seizures. 2mg IV ativan given STAT and followed by another 2mg IV ativan. However the patient was still seizing and we decided to ask the ER physician for help to intubate the patient to protect her airway and start propofol drip. Events leading to Consult/Code: I was called to the ICU to evaluate the patient. Patient was witnessed to have 2 episodes of tonic-clonic seizure activity with postictal state afterwards. After the 2nd seizure I was called to evaluate the patient for possible intubation. On arrival the patient was unresponsive, sonorous respirations. Suction showed trace secretions in the airway. On 15 L OxyMask patient was saturating 90-95%. Patient had blown IV access. Due to patient's inability to protect airway decision made to prioritize securing airway over central IV access. Nursing was able to obtain ultrasound-guided peripheral access in the right bicep. Patient was intubated with etomidate and rocuronium using a MAC 3 GlideScope blade. Patient had a difficult airway with very anterior cords. Shortly after intubation patient we were unable to obtain blood pressure readings. On media monitor patient was in sinus bradycardia at a rate of approximately 55 beats per minute. No peripheral pulses were palpated and We quickly realized that the patient was in PA arrest and CPR was initiated. The peripheral IV access in the right biceps was lost and an IO had to be established in the right humerus. Attempted crash central line attempt in the right femoral region but this was unsuccessful. Hematoma was present postprocedure and a compression bandage applied. Patient was taken off of the ventilator and bagged. After approximately 10 minutes of CPR, 1 epinephrine, 1 bicarb the patient had return of spontaneous circulation. A right IJ was placed. IV fluids running, Levophed initiated. The inpatient team was contacted and updated on the events. Tele ICU to be consulted by hospitalist team. Of note, Respiratory therapy unable to be present during code -the respiratory therapist was in the middle of resuscitative efforts in the Center. Ventilator setting management by myself. Cardiac Rhythm: sinus bradycardia Respiratory ET Tube Size: 7.5 Tube Secured Depth (cm): 21 Tube Secured Location: teeth Tube Placement Confirmation: Visualized tube passing through cords, Equal breath sounds bilaterally, No breath sounds over epigastrium, Confirmation by capnometry and Chest Xray Lines Placed Central Line Lumen Inserted: triple Ultrasound Used for Placement: Yes Care Provided Description of care provided: Please see above note. Additional 65 minutes of critical care time provided. Outcome Outcome: Patient with spontaneous pulses present. In critical condition. Remains in ICU Discharge Providers Provider Date of admission: 10/21/24 23:28 Discharge Date: 10/22/24 Primary care physician: Robert Johnson DO Consults: 10/21/24 23:28 Consult to Occupational Therapy Evaluate & Treat Comment: Physician Instructions: Evaluate and treat Consult to Physical Therapy Evaluate & Treat Comment: Physician Instructions: Evaluate and Treat Discharge provider: Juan Zhou MD Summary Hospital Course Discharge Diagnosis: 1. Seizure disorder, with possible ongoing status epilepticus 2. Cardiac arrest due to pulseless select school activity, etiology unclear 3. Hypokalemia 4. Hypomagnesemia 5. Elevated troponin, likely due to CPR, without evidence of myocardial infarction 6. Hypotension, likely due to volume depletion and cardiac arrest, requiring pressors 7. Lower lobe pulmonary infiltrates, possible aspiration 8. History of hypertension 9. Depression 10. History of Crohn's disease Hospital Course: Patient was admitted to the floor as noted above and experienced a tonic-clonic seizure with loss of consciousness, and was intubated and placed on mechanical ventilation. Soon after intubation she experienced pulseless electrical activity cardiac arrest and was resuscitated within 10 15 minutes by ACLS protocol. There was felt to be effective CPR and resuscitative measures throughout. She remained intubated subsequently though even with withdrawal of sedation was unresponsive, with variable twitching of arms and legs, though no recurrent overt seizure activity. Her EKG showed changes with T-wave inversions progressing across the precordium on serial EKG monitoring, with troponins every 2 hours at 0.385, 0.564, and 0.786. Echocardiography showed no wall motion abnormalities. Given these findings this was felt to be a primary neurologic event, with possible anoxic encephalopathy due to cardiac arrest. Given the need for neurologic ICU care expeditious arrangements were made for transfer to tertiary level facility for ongoing care. She was ordered a dose of IV levofloxacin and clindamycin prior to discharge for possible aspiration (noting penicillin anaphylaxis). 90 minutes critical care time spent Exam Vital Signs (past 8 hours): - 10/22/24 07:00 10/22/24 07:00 10/22/24 07:00 Pulse Rate 70 Respiratory Rate 20 Blood Pressure 111/72 Pulse Oximetry 98 Oxygen Delivery Method Mechanical Ventilation 10/22/24 07:15 10/22/24 07:15 10/22/24 07:30 Pulse Rate 69 71 Respiratory Rate 20 20 Blood Pressure 111/72 Pulse Oximetry 98 98 Oxygen Delivery Method 10/22/24 07:30 10/22/24 07:45 10/22/24 07:45 Pulse Rate 70 Respiratory Rate 20 Blood Pressure 111/71 108/69 Pulse Oximetry 97 Oxygen Delivery Method 10/22/24 08:00 10/22/24 08:00 10/22/24 08:15 Pulse Rate 68 Respiratory Rate 14 Blood Pressure 111/72 117/74 Pulse Oximetry 98 Oxygen Delivery Method 10/22/24 08:15 10/22/24 08:30 10/22/24 08:30 Pulse Rate 70 70 Respiratory Rate 14 14 Blood Pressure 121/75 Pulse Oximetry 99 99 Oxygen Delivery Method 10/22/24 08:45 10/22/24 08:45 10/22/24 09:00 Pulse Rate 69 Respiratory Rate 15 Blood Pressure 131/74 117/74 Pulse Oximetry 98 Oxygen Delivery Method 10/22/24 09:00 10/22/24 09:36 10/22/24 09:36 Pulse Rate 72 72 Respiratory Rate 15 Blood Pressure 111/62 Pulse Oximetry 98 95 Oxygen Delivery Method 10/22/24 10:00 10/22/24 10:30 10/22/24 11:00 Pulse Rate 72 69 Respiratory Rate 14 16 Blood Pressure Pulse Oximetry 98 95 Oxygen Delivery Method Mechanical Ventilation 10/22/24 11:00 10/22/24 11:25 10/22/24 11:25 Pulse Rate 72 71 Respiratory Rate 21 25 H Blood Pressure 100/79 Pulse Oximetry 94 96 Oxygen Delivery Method 10/22/24 11:30 10/22/24 11:33 10/22/24 11:33 Pulse Rate 69 70 Respiratory Rate 24 23 Blood Pressure 118/64 Pulse Oximetry 95 96 Oxygen Delivery Method 10/22/24 12:00 10/22/24 12:00 10/22/24 12:30 Pulse Rate 72 69 Respiratory Rate 23 18 Blood Pressure 116/58 L Pulse Oximetry 95 96 Oxygen Delivery Method 10/22/24 12:30 10/22/24 13:00 10/22/24 13:00 Pulse Rate 65 Respiratory Rate 19 Blood Pressure 132/63 121/89 Pulse Oximetry 95 Oxygen Delivery Method 10/22/24 13:30 10/22/24 13:38 10/22/24 13:38 Pulse Rate 60 61 Respiratory Rate 21 23 Blood Pressure 72/34 L Pulse Oximetry 96 99 Oxygen Delivery Method 10/22/24 13:40 10/22/24 13:40 10/22/24 13:47 Pulse Rate 59 L 58 L Respiratory Rate 23 18 Blood Pressure 60/28 L Pulse Oximetry 99 98 Oxygen Delivery Method 10/22/24 13:47 10/22/24 13:50 10/22/24 13:50 Pulse Rate 60 Respiratory Rate 16 Blood Pressure 110/63 116/65 Pulse Oximetry 97 Oxygen Delivery Method Fraction of Inspired Oxygen 100 Oxygen Delivery Method Mechanical Ventilation Narrative Exam Narrative: GENERAL: This is a frail-appearing thin unresponsive female patient with multiple tattoos, endotracheal intubated with orogastric tube in place, right neck IJ central line and Shirley catheter in place, unresponsive with intermittent twitching of arms and legs. HEAD: Atraumatic. Normocephalic. No temporal or scalp tenderness. EYES: Pupils 3 mm equal round and reactive. Corneal blink reflex intact. No scleral icterus. No injection or drainage. ENT: Mucous membranes pink and moist. NECK: Trachea midline. No JVD, bruits or lymphadenopathy. Supple, nontender, no meningeal signs. Right IJ triple-lumen central venous catheter in place. CARDIOVASCULAR: Regular rate and rhythm without murmurs, gallops, or rubs. RESPIRATORY: Clear to auscultation. GASTROINTESTINAL: Abdomen soft, non-tender, nondistended. EXTREMITIES: No clubbing, cyanosis, or edema. NEUROLOGIC: Unresponsive, intubated, intermittent twitching of the arms and legs. DERMATOLOGIC: No rashes or skin lesions. Objective ECG Impression: EKG 10/21/2024 at 7:22 p.m.: Normal sinus rhythm, LVH by voltage criteria EKG 10/22/2024 at 5:28 a.m.: Sinus rhythm at 47 beats per minute, incomplete right bundle branch block, T-wave inversions leads V1 through V5 EKG 10/22/2024 at 7:56 a.m.: Normal sinus rhythm at 69 beats per minute, deep T-wave inversions V3 through V6 EKG 10/22/2024 at 9:45 a.m.: Normal sinus rhythm at 75 beats per minute, T-wave inversions V3 through V6, unchanged EKG 10/22/2024 at 10:51 a.m.: Sinus rhythm at 72 beats per minute, T-wave inversions leads V3 through V6, unchanged Imaging *: Radiologist's impression: 1. Chest x-ray 10/21/2024: Mild increased vascularity suggestive of edema. 2. Head CT 10/21/2024: No acute intracranial pathology. 3. Abdomen ultrasound 10/21/2024: Limited views of the liver. Increased hepatic echogenicity, which can be seen in the setting of hepatic steatosis. No cholelithiasis or sonographic evidence of acute cholecystitis. 4. Chest x-ray 10/22/2024: Patchy right-sided vague pulmonary infiltrates. Endotracheal tube tip 1.2 cm above the hai. Consider repositioning 5. Head CT 10/22/2024: No acute intracranial pathology. 6. Echocardiogram 10/22/2024: Technically difficult study as the patient on ventilator. 1) Mildly increased left ventricular thickness (concentric) with normal size, normal wall motion and normal systolic function (EF 60-65%). 2) Normal right ventricular size and function. 3) No significant valvular abnormalities. 4) There is a trivial pericardial effusion noted. 5) No prior Echo available for comparison. Labs 10/22/24 05:05 10/22/24 05:05 Labs: Laboratory Results - last 24 hr 10/21/24 10/21/24 10/22/24 17:15 20:25 00:33 WBC 2.3 L RBC 3.13 L Hgb 9.5 L Hct 27.7 L MCV 88.5 MCH 30.3 MCHC 34.2 RDW 16.3 H Plt Count 123 L Neut % (Auto) Not Reportable Lymph % (Auto) Not Reportable [place] % (Auto) Not Reportable Eos % (Auto) Not Reportable Baso % (Auto) Not Reportable Lymph # (Auto) Not Reportable [place] # (Auto) Not Reportable Baso # (Auto) Not Reportable Total Counted 100 Seg Neutrophils % 83.0 H Band Neutrophils % Lymphocytes % (Manual) 10.0 L Monocytes % (Manual) 6.0 Basophils % (Manual) 1.0 Neutrophils # (Manual) 1909 L Nucleated RBCs RBC Morphology See below Anisocytosis 1+ H Microcytosis 1+ H PT 10.6 INR 0.9 ABG Sample Site ABG pH ABG pCO2 ABG pO2 ABG HCO3 ABG Total CO2 ABG O2 Saturation ABG Base Excess Lee Test Sodium 129 L Potassium 4.5 Chloride 97 L Carbon Dioxide 23 BUN 19 H Creatinine 0.50 L Estimated GFR > 60 BUN/Creatinine Ratio 38.0 H Glucose 81 Calcium 10.1 Magnesium Total Bilirubin 0.3 AST 62 H ALT 38 H Alkaline Phosphatase 107 Ammonia < 9 L Total Creatine Kinase Troponin I Total Protein 7.6 Albumin 4.2 Globulin 3.4 Albumin/Globulin Ratio 1.2 TSH 7.50 H Thyroxine (T4) Urine Color Urine Appearance Ur Specific De[place] Urine Protein Urine Glucose (UA) Urine Ketones Urine Occult Blood Urine Nitrate Urine Bilirubin Urine Urobilinogen Ur Leukocyte Esterase Urine RBC Urine WBC Ur Squamous Epith Cells Urine Bacteria Hyaline Casts Ur Culture Indicated? Vol Urine Centrifuged Ur Random Sodium 106 H Nasal Screen MRSA (PCR) Not detected U Opiates 300ng/mL cut Negative Ur Oxycodone Screen Negative Urine Methadone Screen Negative Ur Barbiturates Screen Negative U Tricyclic Antidepress Negative Ur Phencyclidine Scrn Negative Ur Amphetamines Screen Negative U Methamphetamines Scrn Negative Ur MDMA Scrn (Ecstasy) Negative U Benzodiazepines Scrn Negative Urine Cocaine Screen Negative U Marijuana (THC) Screen Negative Urine pH Normal Urine Specific Deeth Normal Ethyl Alcohol < 10 Ur Creatinine Normal 10/22/24 10/22/24 10/22/24 01:00 05:05 05:48 WBC 5.3 D RBC 2.80 L Hgb 8.5 L Hct 24.8 L MCV 88.4 MCH 30.4 MCHC 34.3 RDW 16.0 H Plt Count 121 L Neut % (Auto) Not Reportable Lymph % (Auto) Not Reportable [place] % (Auto) Not Reportable Eos % (Auto) Not Reportable Baso % (Auto) Not Reportable Lymph # (Auto) Not Reportable [place] # (Auto) Not Reportable Baso # (Auto) Not Reportable Total Counted 100 Seg Neutrophils % 82.0 H Band Neutrophils % 3.0 Lymphocytes % (Manual) 13.0 L Monocytes % (Manual) 2.0 Basophils % (Manual) Neutrophils # (Manual) 4505 Nucleated RBCs 1 H RBC Morphology See below Anisocytosis 1+ H Microcytosis 1+ H PT INR ABG Sample Site Right radial ABG pH 7.47 H ABG pCO2 31.6 L ABG pO2 377 H* ABG HCO3 23 ABG Total CO2 22 L ABG O2 Saturation 100 ABG Base Excess -0.4 Lee Test Yes, passed Sodium 131 L Potassium 2.9 L D Chloride 94 L Carbon Dioxide 26 BUN 17 Creatinine 0.53 Estimated GFR > 60 BUN/Creatinine Ratio 32.1 H Glucose 249 H D Calcium 9.2 Magnesium Total Bilirubin 0.3 AST 106 H ALT 66 H Alkaline Phosphatase 87 Ammonia Total Creatine Kinase Troponin I Total Protein 6.2 L Albumin 3.4 L Globulin 2.8 Albumin/Globulin Ratio 1.2 TSH Thyroxine (T4) 6.44 Urine Color Urine Appearance Ur Specific [place] Urine Protein Urine Glucose (UA) Urine Ketones Urine Occult Blood Urine Nitrate Urine Bilirubin Urine Urobilinogen Ur Leukocyte Esterase Urine RBC Urine WBC Ur Squamous Epith Cells Urine Bacteria Hyaline Casts Ur Culture Indicated? Vol Urine Centrifuged Ur Random Sodium Nasal Screen MRSA (PCR) U Opiates 300ng/mL cut Ur Oxycodone Screen Urine Methadone Screen Ur Barbiturates Screen U Tricyclic Antidepress Ur Phencyclidine Scrn Ur Amphetamines Screen U Methamphetamines Scrn Ur MDMA Scrn (Ecstasy) U Benzodiazepines Scrn Urine Cocaine Screen U Marijuana (THC) Screen Urine pH Urine Specific [place] Ethyl Alcohol < 10 Ur Creatinine 10/22/24 10/22/24 10/22/24 06:00 08:01 10:05 WBC RBC Hgb Hct MCV MCH MCHC RDW Plt Count Neut % (Auto) Lymph % (Auto) [place] % (Auto) Eos % (Auto) Baso % (Auto) Lymph # (Auto) [place] # (Auto) Baso # (Auto) Total Counted Seg Neutrophils % Band Neutrophils % Lymphocytes % (Manual) Monocytes % (Manual) Basophils % (Manual) Neutrophils # (Manual) Nucleated RBCs RBC Morphology Anisocytosis Microcytosis PT INR ABG Sample Site ABG pH ABG pCO2 ABG pO2 ABG HCO3 ABG Total CO2 ABG O2 Saturation ABG Base Excess Lee Test Sodium Potassium Chloride Carbon Dioxide BUN Creatinine Estimated GFR BUN/Creatinine Ratio Glucose Calcium Magnesium 1.1 L Total Bilirubin AST ALT Alkaline Phosphatase Ammonia Total Creatine Kinase Troponin I 0.385 H* 0.564 H* Total Protein Albumin Globulin Albumin/Globulin Ratio TSH Thyroxine (T4) Urine Color Straw Urine Appearance Clear Ur Specific [place] 1.010 Urine Protein 1+ H Urine Glucose (UA) Negative Urine Ketones Negative Urine Occult Blood Negative Urine Nitrate Negative Urine Bilirubin Negative Urine Urobilinogen 0.2 Ur Leukocyte Esterase Negative Urine RBC 1-5/hpf Urine WBC 0-1/hpf Ur Squamous Epith Cells 0-1 /hpf Urine Bacteria Occasional (0-1) Hyaline Casts None seen Ur Culture Indicated? Cult not indicated Vol Urine Centrifuged 10ml (spun) Ur Random Sodium Nasal Screen MRSA (PCR) U Opiates 300ng/mL cut Ur Oxycodone Screen Urine Methadone Screen Ur Barbiturates Screen U Tricyclic Antidepress Ur Phencyclidine Scrn Ur Amphetamines Screen U Methamphetamines Scrn Ur MDMA Scrn (Ecstasy) U Benzodiazepines Scrn Urine Cocaine Screen U Marijuana (THC) Screen Urine pH 7.0 Urine Specific [place] Ethyl Alcohol Ur Creatinine 10/22/24 12:14 WBC RBC Hgb Hct MCV MCH MCHC RDW Plt Count Neut % (Auto) Lymph % (Auto) [place] % (Auto) Eos % (Auto) Baso % (Auto) Lymph # (Auto) [place] # (Auto) Baso # (Auto) Total Counted Seg Neutrophils % Band Neutrophils % Lymphocytes % (Manual) Monocytes % (Manual) Basophils % (Manual) Neutrophils # (Manual) Nucleated RBCs RBC Morphology Anisocytosis Microcytosis PT INR ABG Sample Site ABG pH ABG pCO2 ABG pO2 ABG HCO3 ABG Total CO2 ABG O2 Saturation ABG Base Excess Lee Test Sodium Potassium Chloride Carbon Dioxide BUN Creatinine Estimated GFR BUN/Creatinine Ratio Glucose Calcium Magnesium Total Bilirubin AST ALT Alkaline Phosphatase Ammonia Total Creatine Kinase 274 H Troponin I 0.786 H* Total Protein Albumin Globulin Albumin/Globulin Ratio TSH Thyroxine (T4) Urine Color Urine Appearance Ur Specific [place] Urine Protein Urine Glucose (UA) Urine Ketones Urine Occult Blood Urine Nitrate Urine Bilirubin Urine Urobilinogen Ur Leukocyte Esterase Urine RBC Urine WBC Ur Squamous Epith Cells Urine Bacteria Hyaline Casts Ur Culture Indicated? Vol Urine Centrifuged Ur Random Sodium Nasal Screen MRSA (PCR) U Opiates 300ng/mL cut Ur Oxycodone Screen Urine Methadone Screen Ur Barbiturates Screen U Tricyclic Antidepress Ur Phencyclidine Scrn Ur Amphetamines Screen U Methamphetamines Scrn Ur MDMA Scrn (Ecstasy) U Benzodiazepines Scrn Urine Cocaine Screen U Marijuana (THC) Screen Urine pH Urine Specific [place] Ethyl Alcohol Ur Creatinine PFSH Social History household members: spouse Discharge Plan Discharge Plan Patient Disposition: [facility] Discharge Data Primary Care Provider: Robert Johnson MIPS - Admit I confirm the patient?s Advance Care Plan is present, Code status is documented, Surrogate decision maker is in patient?s record [If Yes, STOP here]: Yes MIPS - Meds 'Current medications' to include all prescriptions, [id number] products, herbals, cannabis/cannabidiol products, and vitamin/mineral/dietary (nutritional) supplements. I have utilized all available resources to obtain, update, or review the patient?s current medications. [If Yes, STOP here]: Yes MIPS - DC The patient has a history of heart transplant or Left Ventricular Assist Device (LVAD). If yes, STOP here.: No The patient has current or prior documentation of left ventricular ejection fraction (LVEF) less than or equal to 40%, or moderate or severely depressed left ventricular systolic function.: No A. The patient was prescribed or already taking an Angiotensin-Converting Enzyme (OSMANY) Inhibitor, or Angiotensin Receptor Julisa (ARB).: No B. The patient was prescribed or already taking a beta-julisa. [If Yes to Both A & B, STOP here]: No Patient not prescribed/taking OSMANY or ARB, no reason given.: No Patient not prescribed/taking beta-julisa, no reason given.: No PROFEE Charge Codes Discharge inpatient/observation: [id number] ([phone] [id number])
--- NOTE | 2024-10-22 16:17 | PC.NURSE ---
Day shift: OG tube output is bilious and coffee grouds appearnce. It is also dark black in color. 600mls in collection container at this time 1615.
[2024-10-22] MEDS: propofoL 1,000 MG/100 ML VIAL 7.348 MG IV (16:26)
[2024-10-22] MEDS: NOREPINEPHRINE 8 MG in SODIUM CHLORIDE 0.9% 250 ML 63.194 MG IV (16:26)
== END 2024-10-22 17:15 | disposition short-term general hospital (02) | DRG 100 ==
LOC: ED 17:59 → AC 23:29 → ICU 10-22 00:26
PROVIDERS: Internal Medicine; Student in an Organized Health Care Education/Training Program; Admitting Provider Internal Medicine; Emergency Provider Emergency Medicine; PCP Physical Medicine & Rehabilitation Brain Injury Medicine; Referring Provider Emergency Medicine; Visit Provider Internal Medicine
DX: G40.401 Other generalized epilepsy and epileptic syndromes, not intractable, with status epilepticus (principal); I46.9 Cardiac arrest, cause unspecified; E87.1 Hypo-osmolality and hyponatremia; G93.1 Anoxic brain damage, not elsewhere classified; E86.0 Dehydration; I10 Essential (primary) hypertension; R00.1 Bradycardia, unspecified; R79.89 Other specified abnormal findings of blood chemistry; E87.6 Hypokalemia; E83.42 Hypomagnesemia; E86.9 Volume depletion, unspecified; R91.8 Other nonspecific abnormal finding of lung field; F32.A Depression, unspecified; Z87.19 Personal history of other diseases of the digestive system; Z88.0 Allergy status to penicillin
CPT/HCPCS: 36415; 36569; 36600; 70450; 71045; 76705; 80053; 80305; 80320; 81001; 81003; 82140; 82550; 82805; 82962; 83735; 84300; 84436; 84443; 84484; 85007; 85025; 85610; 87797; 93005; 93306; 94002; 94799; 99284; J0171; J2060; J2704; J3475